=== PATIENT | male | born 2000 | race African-American/Black ===

== ENCOUNTER 2023-04-27 02:30 | Emergency (ER) | payer BC ==
[2023-04-27 02:36] VITALS: BP 115/70; PULSE 59; RESP 16; TEMP 98.5; BMI 20.5
== END 2023-04-27 02:53 | disposition home or self-care (01) ==
LOC: FER 02:30
DX: F41.0 Panic disorder [episodic paroxysmal anxiety] (principal)
CPT/HCPCS: 99282-25